=== PATIENT | male | born 1990 | race African-American/Black ===

== ENCOUNTER 2018-03-29 00:46 | Emergency (ER) | payer MEDICAID ==
[~2018-03-29] VITALS: Ht 188 cm; Wt 86.2 kg
[2018-03-29 01:00] VITALS: BP 139/84
[2018-03-29] MEDS ORDERED: HYDROcodone-ACET 10/325MG TAB PO ONE (03:45)
== END 2018-03-29 04:20 | disposition home or self-care (01) ==
LOC: ER 00:49
DX: S56.012A Strain of flexor muscle, fascia and tendon of left thumb at forearm level, initial encounter (principal); W19.XXXA Unspecified fall, initial encounter; Y93.89 Activity, other specified; Y92.89 Other specified places as the place of occurrence of the external cause; Y99.8 Other external cause status
CPT/HCPCS: 29125; 73130